=== PATIENT | male | born 1995 | race African-American/Black ===

== ENCOUNTER 2020-03-26 10:06 | Emergency (ER) | payer OTHER, SELFPAY ==
--- NOTE | ~2020-03-26 | CT_ITS ---
EXAMINATION: CT abdomen pelvis wo con DATE: 03/26/2020 10:49 INDICATION: Flank pain. TECHNIQUE: Computed tomography (CT) of the abdomen and pelvis was performed without intravenous contr ast. Automated exposure control and iterative reconstruction technique were employed. The dose-length product was 517.09 mGy-cm. COMPARISON: None. FINDINGS: The visualized portions of the lung bases are clear without pneumonia or pleural effusion. The heart size is normal. No pericardial effusion. There is mild bilateral gynecomastia. The liver, g allbladder, spleen, pancreas, adrenal glands, and left kidney are normal. There is a 3 mm stone in ri ght kidney. The ureters are normal. There are bilateral inguinal hernias containing fat. There are no dilated loops of bowel. The appendix is normal. There are no pathologically enlarged lymph nodes. Th ere is no free intraperitoneal fluid. There is mild thoracolumbar spondylosis. IMPRESSION: 1. 3 mm nonobstructing right kidney stone. 2. Bilateral inguinal hernias containing fat. Reviewed, dictated and finalized at location A.
[2020-03-26 10:12] VITALS: BP 125/56; PULSE 75; RESP 18; TEMP 37.1; O2SAT 100
--- NOTE | 2020-03-26 10:46 | PC.NURSE ---
PT TO CT AT THIS TIME, UNABLE TO OBTAIN LABS PRIOR TO LEAVING, WILL ATTEMPT UPON RETURN.
--- NOTE | 2020-03-26 10:47 | ED.BACK ---
HPI - Back Pain/Injury General Chief Complaint: Back Pain/Injury <Erasto Juarez PA-C - Last Filed: 03/26/20 12:36> Stated Complaint: back pain/ hernia pain <Erasto Juarez PA-C - Last Filed: 03/26/20 12:36> Time Seen by Provider: 03/26/20 10:13 <Erasto Juarez PA-C - Last Filed: 03/26/20 12:36> Source: patient <Erasto Juarez PA-C - Last Filed: 03/26/20 12:36> Mode of arrival: ambulatory <Erasto Juarez PA-C - Last Filed: 03/26/20 12:36> Limitations: no limitations <DREA Oconnor Last Filed: 03/26/20 12:36> History of Present Illness HPI Narrative: Patient is a 24-year-old male who presents to emergency department for evaluation of right flank pain from the lower back into the groin for 2 days noting that he believes he has an inguinal hernia patient denies fever chills nausea vomiting urinary symptoms bowel changes. Patient has not taken anything for his symptoms. Symptoms do worsen with movement. Patient has been seen for this in the past and was scheduled to see a surgeon <Erasto Juarez PA-C - Last Filed: 03/26/20 12:36> Related Data Allergies/Adverse Reactions: Allergies Allergy/AdvReac Type Severity Reaction Status Date / Time No Known Allergies Allergy Verified 03/26/20 10:44 <Erasto Juarez PA-C - Last Filed: 03/26/20 12:36> Review of Systems Review of Systems: All systems reviewed & are unremarkable except as noted in HPI and below <Erasto Juarez PA-C - Last Filed: 03/26/20 12:36> PMFSH Social History Social History: Social History (Updated 03/26/20 @ 10:48 by Erasto Juarez PA-C) Smoking status: Never smoker Gender identity (if verbalized by the patient): Male <DREA Oconnor Last Filed: 03/26/20 12:36> Exam Narrative: Exam Narrative: GENERAL: Well-appearing, well-nourished, and in no acute distress. HEAD: Normocephalic, atraumatic. EYES: PERRLA and EOMI. ENT: Nares clear, no rhinorrhea or epistaxis. Mucous membranes moist. CHEST: Clear to auscultation. No respiratory distress. No wheezes rales or rhonchi HEART: Regular rate and rhythm. No murmur heard. Normal peripheral pulses. ABDOMEN: Soft, right groin tenderness no abnormalities noted remainder of abdomen nontender r, nondistended EXTREMITIES: Normal range of motion. No edema. SKIN: Warm, dry, no rash. NEURO: No focal deficits. Alert and oriented x3. PSYCH: Normal mood and affect. <Erasto Juarez PA-C - Last Filed: 03/26/20 12:36> Course Course Emergency Course: Patient in the room in no distress aware of case findings treatment plan and diagnosis agreeing to follow-up as directed or to return if symptoms worsen or concerns <DREA Oconnor Last Filed: 03/26/20 12:36> Consultations Consultation #1: Discussed case with urology who has agreed to follow the patient in clinic <DREA Oconnor Last Filed: 03/26/20 12:36> Date: 03/26/20 <DREA Oconnor Last Filed: 03/26/20 12:36> Time: 12:34 <DREA Oconnor Last Filed: 03/26/20 12:36> Vital Signs Vital signs: Vital Signs Temperature 98.8 F 03/26/20 10:12 Pulse Rate 75 03/26/20 10:12 Respiratory Rate 18 03/26/20 10:12 Blood Pressure 125/56 L 03/26/20 10:12 Pulse Oximetry 100 03/26/20 10:12 Temperature 98.8 F 03/26/20 10:12 Pulse Rate 75 03/26/20 10:12 Respiratory Rate 18 03/26/20 10:12 Blood Pressure 125/56 L 03/26/20 10:12 Pulse Oximetry 100 03/26/20 10:12 <DREA Oconnor Last Filed: 03/26/20 12:36> Vital Signs Temperature 98.8 F 03/26/20 10:12 Pulse Rate 75 03/26/20 10:12 Respiratory Rate 18 03/26/20 10:12 Blood Pressure 125/56 L 03/26/20 10:12 Pulse Oximetry 100 03/26/20 10:12 Temperature 98.8 F 03/26/20 10:12 Pulse Rate 75 03/26/20 10:12 Respiratory Rate 18 03/26/20 10:12 Blood Pressure 125/56 L 03/26/20 10:12 Pulse Oxi
[2020-03-26 11:09] LABS: Basophils Percent Auto 0.2 % (0.2-1.2); Eosinophils Absolute Auto 0.1 K/mm3 (0-0.3); Eosinophils Percent Auto 1.4 % (0-4.4); Hematocrit 46.6 % (42.0-52.0); Hemoglobin 15.8 g/dL (14.0-18.0); Immature Granulocyte Absolute 0.02 K/mm3 (0.00-0.031); Immature Granulocyte Percent A 0.4 % (0-0.5); Lymphocytes Absolute Auto 2.16 K/mm3 (0.9-3.2); Lymphocytes Percent Auto 42.2 % (18.3-44.2); Mean Corpuscular HGB Conc 33.9 g/dl (32-36); Mean Corpuscular Hemoglobin 28.5 pg (26-34); Monocytes Absolute Auto 0.3 K/mm3 (0.1-0.6); Monocytes Percent Auto 6.6 % (2.6-8.5); Neutrophils Absolute Auto 2.5 K/mm3 (1.3-6.7); Neutrophils Percent Auto 49.2 % (45.5-73.1); Platelet Count Result 209 k/mm3 (150-375); Red Blood Count 5.55 M/mm3 (4.6-6.20); Red Cell Distribution Width 12.7 % (11.5-14.5); White Blood Count 5.1 K/mm3 (4.5-10.0)
[2020-03-26 11:21] LABS: Blood Urea Nitrogen 10 mg/dL (9-20); Calcium 9.1 mg/dL (8.4-10.2); Carbon Dioxide 30 mmol/L (22-30); Chloride 103 mmol/L (98-107); Estimated CRCL calculation 100 ml/min; Estimated Glomerular Filt Rate > 60; Glucose 116 mg/dL (75-110); Potassium 3.9 mmol/L (3.4-5.0); Sodium 137 mmol/L (137-145)
[2020-03-26] MEDS: SODIUM CHLORIDE 0.9% IV 1,000 ML 999 ML IV CONT (11:43)
[2020-03-26 11:50] LABS: Add Urine Microscopic? NO; Appearance Urine Clear (Clear); Bilirubin Urine Negative (Negative); Blood Urine Negative (Negative); Color Urine Yellow (Yellow); Glucose Urine UA Negative (Negative); Ketones Urine Negative (Negative); Leukocyte Esterase Ur Negative LEU/UL (Negative); Nitrate Urine Negative (Negative); Protein Urine Negative (Negative); Specific Grav Ur 1.019 (1.001-1.035); Urobilinogen Urine Negative mg/dL (<2.0)
[2020-03-26 13:05] VITALS: BP 110/69; PULSE 98; RESP 16; TEMP 36.6; O2SAT 100
== END 2020-03-26 13:07 | disposition home or self-care (01) ==
PROVIDERS: Emergency Medicine Emergency Medical Services; Emergency Provider Emergency Medicine; PCP Internal Medicine
DX: N20.0 Calculus of kidney (principal); K40.20 Bilateral inguinal hernia, without obstruction or gangrene, not specified as recurrent
CPT/HCPCS: 36415; 74176; 80048; 81003; 85025; 96361; 96365; 99284; J0131; J7030